=== PATIENT | female | born 1995 | race Two or more races ===

== ENCOUNTER 2022-12-05 11:40 | Outpatient (CLI) | payer OTHER | END 2022-12-05 12:45 | disposition home or self-care (01) | LOC: PRENATAL 11:40 | PROVIDERS: ATTEND Obstetrics & Gynecology Maternal & Fetal Medicine | DX: O35.9XX0 Maternal care for (suspected) fetal abnormality and damage, unspecified, not applicable or unspecified (principal); O35.3XX0 Maternal care for (suspected) damage to fetus from viral disease in mother, not applicable or unspecified; Z3A.23 23 weeks gestation of pregnancy ==

== ENCOUNTER 2023-02-05 10:09 | Outpatient (CLI) | payer OTHER | END 2023-02-05 12:15 | disposition home or self-care (01) | LOC: PRENATAL 10:09 | PROVIDERS: ATTEND Obstetrics & Gynecology Maternal & Fetal Medicine | DX: O26.849 Uterine size-date discrepancy, unspecified trimester (principal); O36.8199 Decreased fetal movements, unspecified trimester, other fetus; Z3A.32 32 weeks gestation of pregnancy ==

== ENCOUNTER 2023-03-12 11:16 | Inpatient (IN) | payer OTHER ==
[~2023-03-12] VITALS: Ht 149.9 cm; Wt 3.6 kg
[2023-03-28] MEDS ORDERED: PRIMACARE SOFT1 EACH PO (07:15)
[2023-03-28] MEDS ORDERED: FOLIC ACID0.8 MG PO (07:16)
== END 2023-03-30 13:48 | disposition home or self-care (01) | DRG 788 ==
LOC: O/R 03-28 06:42 → OB/GYN 03-28 06:42 → LDR 03-28 07:00 → OB/GYN 03-28 15:26
PROVIDERS: ADMIT Obstetrics & Gynecology; ATTEND Obstetrics & Gynecology
PROC: 4A1HXCZ Monitoring of Products of Conception, Cardiac Rate, External Approach (ICD-10-PCS; 2023-03-28)
PROC: 10D00Z1 Extraction of Products of Conception, Low, Open Approach (ICD-10-PCS; principal; 2023-03-28 07:00)
DX: O98.52 Other viral diseases complicating childbirth (principal); A60.09 Herpesviral infection of other urogenital tract; Z3A.40 40 weeks gestation of pregnancy; Z37.0 Single live birth; Z20.822 Contact with and (suspected) exposure to COVID-19

== ENCOUNTER 2024-11-25 08:20 | Outpatient (CLI) | payer OTHER ==
[~2024-11-25 08:20] MED LIST: FOLIC ACID0.8 MG PO; PRIMACARE SOFT1 EACH PO
== END 2024-11-25 08:43 | disposition home or self-care (01) ==
LOC: PRENATAL 08:20
PROVIDERS: ATTEND Obstetrics & Gynecology Maternal & Fetal Medicine
DX: O36.80X0 Pregnancy with inconclusive fetal viability, not applicable or unspecified (principal); Z36.82 Encounter for antenatal screening for nuchal translucency; Z14.8 Genetic carrier of other disease; O34.219 Maternal care for unspecified type scar from previous cesarean delivery; Z3A.15 15 weeks gestation of pregnancy

== ENCOUNTER 2024-12-31 11:40 | Outpatient (CLI) | payer OTHER | END 2024-12-31 11:41 | disposition home or self-care (01) | LOC: PRENATAL 11:40 | PROVIDERS: ATTEND Obstetrics & Gynecology Maternal & Fetal Medicine | DX: O44.00 Complete placenta previa NOS or without hemorrhage, unspecified trimester (principal); O34.219 Maternal care for unspecified type scar from previous cesarean delivery; Z3A.20 20 weeks gestation of pregnancy ==

== ENCOUNTER 2025-01-23 21:50 | Emergency (ER) | payer OTHER ==
[~2025-01-23] VITALS: Ht 149.9 cm; Wt 68.0 kg
[2025-01-24] MEDS ORDERED: HYOSCYAMINE SULFATE 0.125 MG TAB.SUBL SL ONE (00:30)
[2025-01-24] MEDS ORDERED: FAMOtidine 10 MG/ML (4ML VIAL) IV PUSH STA (00:30)
[2025-01-24] MEDS ORDERED: 0.9 % SODIUM CHLORIDE 1,000 ML IV STA (00:30)
[2025-01-24] MEDS ORDERED: FAMOTIDINE/PF 20 MG/2 ML VIAL ONE (00:40)
[2025-01-24] MEDS ORDERED: HYOSCYAMINE SULFATE 0.125 MG TAB.SUBL ONE (00:40)
[2025-01-24 01:07] LABS: BASO % 0.3 % (0.1-1.2); EOS # 0.17 (0.04-0.54); EOS % 1.4 % (0.7-7.0); HEMATOCRIT 38.1 % (34.1-44.9); LYMPH # 2.42 (1.18-3.74); LYMPH % 20.2 % (19.3-53.1); MONO # 0.84 (0.24-0.82); NEUT # 8.39 (1.56-6.13); NEUT % 70.2 % (34.0-71.1); PLATELET COUNT 267 K/uL (163-369); RED BLOOD COUNT 4.34 M/uL (3.93-5.22); RED CELL DISTRIBUTION WIDTH 13.3 % (11.6-14.4)
[2025-01-24 01:21] LABS: BILIRUBIN TOTAL 0.22 mg/dL (0.3-1.2); CALCIUM 8.8 mg/dL (8.5-10.1); CREATININE SERUM 0.44 mg/dL (0.55-1.02); GFR 170.26; GLOBULINA 3.8 G/DL (2.4-3.5); POTASSIUM 3.49 mEq/L (3.5-5.1); TOTAL PROTEIN 6.8 gm/dL (6.4-8.2)
[2025-01-24 03:07] LABS: URINE APPEARANCE Clear; URINE BILIRRUBIN Negative (NEGATIVE); URINE BLOOD Negative; URINE COLOR Yellow; URINE GLUCOSE Negative (NEGATIVE); URINE LEUKOCYTE Negative; URINE NITRATE Negative; URINE PROTEIN Negative (NEGATIVE); URINE UROBILINOGEN 0.2 E.U./dl
[2025-01-24 03:10] LABS: URINE KETONE 40 (NEGATIVE)
[2025-01-24 03:11] LABS: URINE RBC 4.1 uL (0.0-20.8); URINE WBC 9.9 uL (0.0-23.2)
== END 2025-01-24 04:15 | disposition home or self-care (01) ==
LOC: ER 21:50
DX: O26.892 Other specified pregnancy related conditions, second trimester (principal); K82.4 Cholesterolosis of gallbladder; Z3A.23 23 weeks gestation of pregnancy

== ENCOUNTER 2025-03-25 15:26 | Outpatient (CLI) | payer OTHER | END 2025-03-25 15:27 | disposition home or self-care (01) | LOC: PRENATAL 15:26 | PROVIDERS: ATTEND Obstetrics & Gynecology Maternal & Fetal Medicine | DX: O26.849 Uterine size-date discrepancy, unspecified trimester (principal); O36.8199 Decreased fetal movements, unspecified trimester, other fetus; O34.219 Maternal care for unspecified type scar from previous cesarean delivery; Z3A.32 32 weeks gestation of pregnancy ==

== ENCOUNTER 2025-04-02 14:22 | Emergency (ER) | payer OTHER ==
[~2025-04-02] VITALS: Ht 149.9 cm; Wt 72.6 kg
[2025-04-02] MEDS ORDERED: MORPHINE SULFATE 2 MG/ML CARTRIDGE IV ONE (17:30)
[2025-04-02] MEDS ORDERED: ACETAMINOPHEN 500 MG GEL..CAP PO ONE ×2 (17:45→18:09)
== END 2025-04-02 18:34 ==
LOC: ER 14:30
DX: O26.893 Other specified pregnancy related conditions, third trimester (principal); R10.31 Right lower quadrant pain; Z3A.33 33 weeks gestation of pregnancy

== ENCOUNTER 2025-05-08 13:31 | Inpatient (IN) | payer OTHER ==
[~2025-05-08] VITALS: Ht 149.9 cm; Wt 3.2 kg
[2025-05-08 13:47] LABS: BASO % 0.2 % (0.1-1.2); EOS # 0.04 (0.04-0.54); EOS % 0.5 % (0.7-7.0); LYMPH # 1.71 (1.18-3.74); LYMPH % 20.3 % (19.3-53.1); MEAN PLATELET VOLUME 9.40 fl (9.4-12.4); MONO # 0.46 (0.24-0.82); MONO % 5.5 % (4.7-12.5); NEUT # 6.17 (1.56-6.13); NEUT % 73.1 % (34.0-71.1); RED CELL DISTRIBUTION WIDTH 14.2 % (11.6-14.4)
[2025-05-08 13:49] LABS: URINE APPEARANCE Cloudy; URINE BILIRRUBIN Negative (NEGATIVE); URINE BLOOD Negative; URINE COLOR Yellow; URINE KETONE 15 (NEGATIVE); URINE LEUKOCYTE Small; URINE NITRATE Negative; URINE PROTEIN Trace (NEGATIVE); URINE UROBILINOGEN 0.2 E.U./dl
[2025-05-08 13:50] LABS: URINE BACTERIA 4679.9 uL (0.0-1933); URINE RBC 31.6 uL (0.0-20.8); URINE WBC 63.9 uL (0.0-23.2)
[2025-05-08 13:56] LABS: URINE CAST 1.17 uL (0.0-1.40); URINE EPITHELIAL CELLS > 201.7 uL (0.0-38.8); URINE GLUCOSE 100 MG/DL (NEGATIVE)
[2025-05-08 14:16] LABS: INR 0.95
[2025-05-12 08:50] VITALS: BP 125/81
[2025-05-12] MEDS ORDERED: CEFAZOLIN SODIUM 1,000 MG VIAL ONE (10:24)
[2025-05-12] MEDS ORDERED: OXYTOCIN 10 UNITS/ML VIAL ONE (10:25)
[2025-05-12] MEDS ORDERED: ERYTHROMYCIN BASE OPHT 1GM EACH TUBE OP ONE (10:25)
[2025-05-12] MEDS ORDERED: CITRIC ACID/SODIUM CITRATE 30 ML BLIST.PACK PO ONE (11:14)
[2025-05-12] MEDS ORDERED: MORPHINE SULFATE 4 MG/ML CARTRIDGE IV SCH (16:00)
[2025-05-12 17:49] VITALS: BP 126/75
[2025-05-12 18:03] LABS: BASO % 0.1 % (0.1-1.2); EOS # 0.01 (0.04-0.54); EOS % 0.1 % (0.7-7.0); LYMPH # 1.43 (1.18-3.74); LYMPH % 10.1 % (19.3-53.1); MEAN PLATELET VOLUME 9.90 fl (9.4-12.4); MONO # 1.02 (0.24-0.82); MONO % 7.2 % (4.7-12.5); NEUT # 11.62 (1.56-6.13); NEUT % 82.1 % (34.0-71.1); RED CELL DISTRIBUTION WIDTH 14.0 % (11.6-14.4)
[2025-05-12] MEDS ORDERED: KETOROLAC TROMETHAMINE 60 MG VIAL IM NR (20:00)
[2025-05-13] VITALS: BP 107/64
[2025-05-13] MEDS ORDERED: OxyCODONE HCL 5 MG TABLET (ROXICODONE) PO SCH (05:00)
[2025-05-13 08:00] VITALS: BP 123/71
[2025-05-13] MEDS ORDERED: SIMETHICONE 125 MG CAPSULE PO SCH (08:00)
[2025-05-13] MEDS ORDERED: PNV,CALCIUM 72/IRON/FOLIC ACID 1 TAB TABLET PO SCH (08:00)
[2025-05-13] MEDS ORDERED: DOCUSATE SODIUM 100MG CAP PO SCH (09:00)
[2025-05-13 16:55] VITALS: BP 122/80
[2025-05-14 00:51] VITALS: BP 116/71
[2025-05-14 09:06] VITALS: BP 107/66
[2025-05-14 19:03] VITALS: BP 122/84
[2025-05-15 00:59] VITALS: BP 117/76
[2025-05-15 08:00] VITALS: BP 117/78
== END 2025-05-15 13:44 | disposition home or self-care (01) | DRG 788 ==
LOC: O/R 05-12 10:00 → OB/GYN 05-12 10:00 → LDR 05-12 12:13 → OB/GYN 05-12 13:40
PROVIDERS: ADMIT Obstetrics & Gynecology; ATTEND Obstetrics & Gynecology
PROC: 4A1HXCZ Monitoring of Products of Conception, Cardiac Rate, External Approach (ICD-10-PCS; 2025-05-12)
PROC: 10D00Z1 Extraction of Products of Conception, Low, Open Approach (ICD-10-PCS; principal; 2025-05-12 10:30)
DX: O34.211 Maternal care for low transverse scar from previous cesarean delivery (principal); Z3A.39 39 weeks gestation of pregnancy; Z37.0 Single live birth